=== PATIENT | female | born 1965 | race Caucasian/White ===

== ENCOUNTER 2020-01-29 07:50 | Emergency (ER) | payer OTHER, SELFPAY ==
--- NOTE | ~2020-01-29 | XR_ITS ---
XR toe 2nd LT min 2V 01/29/2020 08:45 Indication: Second toe injury. Laceration. Procedure: 3 views left second toe Comparison: No prior studies for comparison. Findings: There is an avulsion fracture dorsal base left second distal phalanx. Mild soft tissue swel ling. No foreign bodies. Impression: 1: Intra-articular avulsion fracture dorsal base left second distal phalanx. Reviewed, dictated and finalized at location A. Impression: 1: Intra-articular avulsion fracture dorsal base left second distal phalanx.
--- NOTE | 2020-01-29 08:04 | ED.LOWEXIN ---
HPI - Extremity Injury (Lower) General Chief Complaint: Wound/Laceration Stated Complaint: hurt toe Time Seen by Provider: 01/29/20 08:04 Source: patient Mode of arrival: ambulatory Limitations: no limitations History of Present Illness HPI Narrative: 54-year-old woman comes in today complaining of pain and bleeding of her left 2nd toe that occurred this morning. She states that she stubbed it as she was getting out of bed and fell over something on her floor. She states she had a tetanus update 3 years ago. She also complains of a cough and shortness of breath that has been present all winter and associated with postnasal drainage. She denies chest pain, fever. She states her cough is usually productive of brown sputum. He is a smoker. She has a history of bronchitis for which she used an inhaler but does not currently have one. complaint: foot injury Onset (ago): hour(s) (1) Injury: Left: toes Type of Injury: blunt Place: home Severity: moderate Relieving factors: nothing Exacerbating factors: weight bearing, movement and palpation Context: direct blow Associated symptoms: ambulatory Other symptoms: SOB ( As noted above) Related Data Allergies Allergy/AdvReac Type Severity Reaction Status Date / Time No Known Allergies Allergy Verified 01/29/20 08:16 Review of Systems Constitutional: Constitutional: Denies chills and Denies fever(s) Eyes: Eyes: Denies change in vision and Denies photophobia ENT: Denies dysphagia, Reports nasal congestion and Denies sore throat Cardiovascular: Cardiovascular: Denies chest pain and Denies radiating jaw, neck or arm pain Respiratory: Respiratory: Reports chest congestion, Reports cough, Reports dyspnea and Reports wheezing Gastrointestinal: Gastrointestinal: Denies abdominal pain, Denies nausea and Denies vomiting Musculoskeletal: Musculoskeletal: Reports as per HPI Comments: History of chronic back and hip pain. Integumentary/Breasts: Skin/Breast: Denies pruritus, Denies rash and Denies skin ulcer Neurologic: Denies vertigo, Denies dizziness and Denies syncope Hematologic/Lymphatic: Hematologic/Lymphatic: Denies easy bleeding and Denies easy bruising Allergic/Immunologic: Allergic/Immunologic: Reports as per HPI, Denies lip swelling and Reports wheezing PMFSH Past Medical History Medical History Hip pain Low back pain Social History Social History (Updated 01/29/20 @ 08:29 by Zach Cosby MD) Smoking packs per day: 1 Smoking cigarettes per day: 20.0 Smoking status: Current every day smoker Tobacco type: cigarettes Substance use: never Living arrangements: with family Exam Const: General: alert Orientation/consciousness: patient oriented x3 Other: mild acute distress. HENMT: Ears: TM's normal bilaterally and EAC's normal Mouth: Yes Normal oral and palatal mucosa present and Yes moist mucous membranes Throat: posterior oropharynx normal and uvula midline Eyes: Conjunctivae: conjunctivae normal Pupils: Equal, round and reactive pupils present EOM: EOMs intact bilaterally Resp: Effort & Inspection: normal respiratory effort and not labored Auscultation: clear to auscultation bilaterally, no rales, no rhonchi and no wheezes Cardio: Rate: regular rate Rhythm: regular rhythm Heart sounds: no murmurs Skin: General skin exam: normal color, no jaundice and no pallor Rashes: no rashes Other: Left 2nd toe nail is hypertrophied and thickened. It is avulsed proximally but appears to be attached to the nail bed distally. There is no Bleeding or tenderness at the proximal affected toe or the adjacent toes or the remainder of the foot. Neuro: General: patient oriented x3, moves all extremities, no focal motor deficits and CN's II-XI intact bilaterally Extrem: General: normal to inspection and no clubbing, cyanosis or edema Psych: Appearance: grossly normal and well kempt Menta
[2020-01-29 08:07] VITALS: BP 153/84; PULSE 80; RESP 20; TEMP 36.6; O2SAT 99
[2020-01-29] MEDS: IBUPROFEN 600 MG TABLET PO (08:29)
--- NOTE | 2020-01-29 08:59 | PC.NURSE ---
new dry dressing applied to right 2nd toe wound. no bleeding noted.
== END 2020-01-29 09:18 | disposition home or self-care (01) ==
PROVIDERS: Emergency Provider Emergency Medicine
DX: S91.205A Unspecified open wound of left lesser toe(s) with damage to nail, initial encounter (principal); S92.502A Displaced unspecified fracture of left lesser toe(s), initial encounter for closed fracture; X58.XXXA Exposure to other specified factors, initial encounter
CPT/HCPCS: 73660; 99283; A9270

== ENCOUNTER 2021-08-28 08:23 | Outpatient (CLI) | payer OTHER, SELFPAY ==
--- NOTE | ~2021-08-28 | CT_ITS ---
EXAMINATION: CT soft tissue neck w con DATE: 08/28/2021 09:05 INDICATION: Cervical lymphadenopathy. Left neck mass. TECHNIQUE: Computed tomography (CT) of the neck was performed with 75 mL Omnipaque-350 intravenous co ntrast. Automated exposure control and iterative reconstruction technique were employed. The dose-harley gth product was 447.41 mGy-cm. COMPARISON: None FINDINGS: There is mild emphysema. There is mild scarring at the lung apices. There is asymmetric enl argement of the left submandibular gland. A skin marker overlies this area. There is no sialolith. Th ere is a 3.1 cm nodule in left thyroid lobe. There are no pathologically enlarged lymph nodes. There is plaque in the proximal internal carotid arteries with 0% stenosis relative to normal distal artery lumen diameters. There is moderate cervical spondylosis. IMPRESSION: 1. Asymmetric enlargement of left submandibular gland, which may be a normal variant or inflammation. No abnormal mass identified in the gland. 2. Thyroid nodule. Thyroid ultrasound is recommended for risk stratification. Reviewed, dictated and finalized at location A. IMPRESSION: 1. Asymmetric enlargement of left submandibular gland, which may be a normal va riant or inflammation. No abnormal mass identified in the gland. 2. Thyroid nodule. Thyroid ultrasound is recommended for risk stratification.
== END 2021-08-28 08:24 | disposition home or self-care (01) ==
LOC: CHSIMG 08:25
PROVIDERS: PCP Physician Assistant; Visit Provider Physician Assistant
DX: R59.0 Localized enlarged lymph nodes (principal)
CPT/HCPCS: 70491; Q9967

== ENCOUNTER 2021-10-12 12:14 | Outpatient (CLI) | payer OTHER, SELFPAY ==
--- NOTE | ~2021-10-12 | US_ITS ---
EXAMINATION: US thyroid EXAM DATE: 10/12/2021 12:45 INDICATION: Nontoxic single thyroid nodule. TECHNIQUE: Multiple grayscale and Doppler images of the thyroid were obtained (by a technologist who performed the scan) and subsequently reviewed. Individual nodules and recommendations may be reporte d in accordance with TI-RADS system as designated by the 2017 ACR White Paper TI-RADS committee. True elation is made to 08/28/21. FINDINGS: The right thyroid lobe measures 5.4 x 1.9 x 1.7 cm, the left measuring 6.1 x 2.8 x 3.6 cm. Dimensions are moderately enlarged. There is diffusely hypervascular thyroid parenchyma and diffuse heterogenei ty. Largest right thyroid lobe nodule measures up to 8, not likely clinically significant. On the lef t a heterogeneous region was measured as solid nodule, but this has similar echogenicity to remainder of the thyroid parenchyma, most likely thyromegaly rather than superimposed focal discrete nodule. IMPRESSION: Moderately enlarged, hypervascular thyroid parenchyma. Return to clinical follow-up and i f additional palpable abnormality develops a repeat ultrasound can be obtained. Reviewed, dictated and finalized at location A. R RESOURCE ASSESSOR IMPRESSION: Moderately enlarged, hypervascular thyroid parenchyma. Return to inical follow-up and if additional palpable abnormality develops a repeat ultra sound can be obtained.
== END 2021-10-12 12:15 | disposition home or self-care (01) ==
LOC: CHSIMG 12:17
PROVIDERS: PCP Physician Assistant; Visit Provider Physician Assistant
DX: E04.1 Nontoxic single thyroid nodule (principal)
CPT/HCPCS: 76536